=== PATIENT | female | born 1990 | race African-American/Black ===

== ENCOUNTER 2021-01-07 11:29 | Emergency (ER) | payer OTHER ==
[~2021-01-07] VITALS: Ht 152.4 cm; Wt 77.4 kg
[2021-01-07] MEDS ORDERED: METOCLOPRAMIDE HCL 10 MG/2 ML VIAL. IVP ONE (12:15)
[2021-01-07] MEDS ORDERED: IV NORMAL SALINE 1,000ML 1,000 ML IV ONE (12:15)
[2021-01-07] MEDS ORDERED: ACETAMINOPHEN 500 MG TABLET PO ONE (12:15)
[2021-01-07] MEDS ORDERED: KETOROLAC 30 MG/ML VIAL. IVP ONE (12:15)
[2021-01-07 12:43] LABS: BASO % 0 % (0-3); EOS % 0 % (0-3); HEMOGLOBIN 12.2 g/dL (12.0-15.5); LYMPH % 7 % (24-48); MEAN CORPUSCULAR HEMOGLOBIN 28 pg (25-35); MEAN CORPUSCULAR HGB CONC 34 g/dL (31-37); MEAN CORPUSCULAR VOLUME 83 fL (79-100); MONO # 1.1 x10^3/uL (0.0-1.1); MONO % 7 % (0-9); NEUT # 13.5 x10^3uL (1.8-7.7); NEUT % 86 % (31-73); PLATELET COUNT 266 x10^3/uL (140-400); RED BLOOD COUNT 4.34 x10^6/uL (3.50-5.40); RED CELL DISTRIBUTION WIDTH 13.7 % (11.5-14.5); WHITE BLOOD COUNT 15.6 x10^3/uL (4.0-11.0)
[2021-01-07 13:01] LABS: ALBUMIN 3.1 g/dL (3.4-5.0); ALBUMIN/GLOBULIN RATIO 0.6 (1.0-1.7); CALCIUM 8.5 mg/dL (8.5-10.1); CREATININE 1.1 mg/dL (0.6-1.0); GFR 69.6; POTASSIUM 3.7 mmol/L (3.5-5.1); TOTAL BILIRUBIN 0.3 mg/dL (0.2-1.0); TOTAL PROTEIN 8.2 g/dL (6.4-8.2)
[2021-01-07 13:06] LABS: BACTERIA,URINE 0 /HPF (0-FEW); CLARITY,URINE CLOUDY; COLOR,URINE ORANGE; SQUAMOUS EPITHELIAL CELL,UR MOD /LPF
--- NOTE | 2021-01-07 13:06 | PHYS DOC ---
Past History Past Medical History: No Pertinent History Past Surgical History: Cholecystectomy Smoking: Non-smoker Alcohol Use: None Drug Use: None Adult General Chief Complaint Chief Complaint: BACK PAIN OR INJURY HPI HPI Patient is a 30-year-old female who presents to the emergency department with a chief complaint of bilateral back pain that started Tuesday afternoon at approximately 2 PM while she was at work. Patient reports a slow onset of pain that became unbearable throughout the evening, patient reports she took her temperature which was 102.8, did not take any medications for her temperature, noticed the next day when she woke up her temperature was normal. Patient reports being unable to work related to her pain and seeing her primary care provider at the [facility], was diagnosed with a urinary tract infection and dehydration. Patient reports they only took a urine sample, gave her an intramuscular injection of Rocephin, prescribed her Macrobid and Pyridium which she took prior to her arrival to the ER here today. Patient feels she was misdiagnosed and would like a second opinion. Patient reports mild nausea without vomiting or diarrhea, reports intermittent constipation and has not had a bowel movement for 3 days now. Patient reports her pain a 9 out of 10. Patient describes urinary tract infection symptoms as bladder pressure that is constant but becomes worse when she urinates. Denies seeing any blood in her stool or in her urine. Patient denies any vaginal discharge, vaginal itching, rashes in her perennial area, denies STI concerns. Patient reports her last menstrual cycle was approximately 1-1/2 months ago with normal duration of flow, reports having irregular periods since having her Mirena removed 10 years ago and is currently on a control pill only. Patient denies taking any other prescription medications. Patient reports a past surgical history of a cholecystectomy years ago. Patient reports an allergy to Zofran. Reports she had her Covid vaccination completed in September 2020. Patient denies chest pains or shortness of breath, does state it feels like her heart is beating faster than normal. Denies headaches, rashes of her skin, does report generalized body aches, denies any injury to her back. Denies neck pain, sore throat, nasal or chest congestion. Patient denies any other physical complaints or physical concerns. Review of Systems Review of Systems 14 body systems of review of systems have been reviewed. See HPI for pertinent positives and negative responses, otherwise all other systems are negative, nonpertinent or noncontributory. Current Medications Current Medications Current Medications Medications (Trade) Dose Ordered Sig/Abigail Start Time Stop Time Status Last Admin Dose Admin Acetaminophen (Tylenol) 1,000 mg 1X ONCE 01/07/21 12:15 01/07/21 12:19 DC 01/07/21 12:35 1,000 MG Ketorolac Tromethamine (Toradol 30mg Vial) 30 mg 1X ONCE 01/07/21 12:15 01/07/21 12:19 DC 01/07/21 12:34 30 MG Metoclopramide HCl (Reglan Vial) 10 mg 1X ONCE 01/07/21 12:15 01/07/21 12:19 DC 01/07/21 12:32 10 MG Sodium Chloride 1,000 ml @ 1,000 mls/hr 1X ONCE 01/07/21 12:15 01/07/21 13:14 01/07/21 12:31 1,000 MLS/HR Allergies Allergies Allergies Coded Allergies Type Severity Reaction Last Updated Verified ondansetron HCl Allergy Unknown 08/29/15 Yes Physical Exam Physical Exam Constitutional: Well developed, well nourished, no acute distress, non-toxic appearance. 30-year-old female in no apparent distress. HENT: Normocephalic, atraumatic. Eyes: Conjunctive are normal no discharge. Neck: Normal range of motion, no tenderness, supple, no stridor. No meningismus signs, no nuchal rigidity appreciated. Cardiovascular:Heart rate regular rhythm, no murmur, heart rate 111 during physical examination. Lungs & Thorax: Bilateral breath sounds clear to auscultation no adventitious lung sounds appreciated. Abdomen: Bowel sounds normal, soft, no masses, no pulsatile masses. Tenderness to over mid abdomen near umbilicus to low central abdomen with radiation to left lower quadrant. No McBurney's point tenderness, no rebound tenderness, negative psoas sign, negative Avalos sign. No bruising of the abdomen appreciated, old well-healed abdominal surgery site, no skin discoloration of the abdomen appreciated. Skin: Warm, dry, no erythema, no rash. Back: No midline spinal tenderness, CVA tenderness on the left and right, bilateral lumbar tenderness to palpation without radiation. Extremities: No tenderness, no cyanosis, no clubbing, ROM intact, no edema. Neurologic: Alert and oriented X 3, normal motor function, normal sensory function, no focal deficits noted. Psychologic: Affect normal, judgement normal, mood normal. Current Patient Data Vital Signs Vital Signs Date Time Temp Pulse Resp B/P (MAP) Pulse Ox O2 Delivery O2 Flow Rate FiO2 01/07/21 11:35 100.2 111 20 123/76 (92) 98 Room Air EKG EKG [] Radiology/Procedures Radiology/Procedures PATIENT: FLORI TSAI ACCOUNT: [id number] : 1990 LOCATION: ER AGE: 30 SEX: F EXAM STATUS: REG ER ORD. PHYSICIAN: JOE CARLSON APRN REASON: low abdomen pain, bilateral cva tenderness, fever -75mls omni 300 PROCEDURE: CT ABD PELV W/ IV CONTRST ONLY EXAM: CT Abdomen and Pelvis with IV contrast CLINICAL HISTORY: Low abdominal pain, bilateral CVA tenderness COMPARISON: None TECHNIQUE: Helical CT of the abdomen and pelvis was performed following the administration of intravenous contrast. Axial, coronal and sagittal reformatted images were generated. PQRS compliance statement - One or more of the following individualized dose reduction techniques were utilized for this study: 1. Automated exposure control 2. Adjustment of the mA and/or kV according to patient size 3. Use of iterative reconstruction technique FINDINGS: Lower Chest: Lung bases are clear. Abdomen and Pelvis: No focal liver lesion. Borderline hepatic hypoattenuation. Liver is enlarged measuring 21.5 cm in length. Cholecystectomy clips are seen. No biliary ductal dilatation. Pancreas is unremarkable. Spleen is normal in appearance. Adrenal glands are unremarkable. Symmetric nephrograms although the right is heterogeneous. No focal renal lesion. There is enhancement of the ureters, greater on the left. Bladder wall thickening. Moderate to large amount of colonic stool content. No small or large bowel dilatation. No bowel obstruction. Appendix is normal. No abdominal or pelvic ascites. Infiltration about the right gluteal region and right flank. Prominent right lower quadrant retroaortic lymph nodes are seen. Bones: No aggressive osseous lesion is seen. No small or large bowel dilatation. IMPRESSION: 1. There is edema and enhancement about the ureters, greater on the left, consistent with ureteritis and suspicious for ascending infectious process. This can be correlated with urinalysis. 2. Heterogeneous right nephrogram there is seen with pyelonephritis. 3. Hepatomegaly. Borderline hepatic hypoattenuation likely fatty liver. Electronically signed by: Nacho Smith MD (01/07/2021 1:54 PM) [id number] DICTATED AND SIGNED BY: NACHO SMITH MD DATE: 01/07/21 1342 CC: JOE CARLSON APRN; ANAIS TAPIA MD ~MTH0 0 Heart Score C/O Chest Pain: No Risk Factors: Risk Factors: DM, Current or recent (<one month) smoker, HTN, HLP, family history of CAD, obesity. Risk Scores: Risk Factors: DM, Current or recent (<one month) smoker, HTN, HLP, family history of CAD, obesity. Course & Med Decision Making Course & Med Decision Making Pertinent Labs and Imaging studies reviewed. (See chart for details) 30-year-old female, vital signs reviewed, presents emergency department concerning low back pain and bladder pressure since last Tuesday. Patient was seen at [facility] today and diagnosed with a UTI, patient presents today for a second opinion. Patient's physical examination concerning for urinary tract infection versus pyelonephritis versus surgical abdomen. Will order CBC, CMP, blood cultures x2 related to fever, lactic acid, 1 L normal saline, 10 mg IV Reglan, 30 mg IV Toradol, CT abdomen pelvis with IV contrast. Urinalysis assay, urine test, will send urine for GC chlamydia. CT abdomen pelvis interpreted by house radiologist concerning for pyelonephritis, also concerning for a fatty liver, will change patient's prescribed antibiotics from nitrofurantoin to Bactrim DS twice daily x7 days. Upon reexamination of the patient, the patient states she feels much better and is ready to go home, patient states that she she is now pain-free rating her pain at a 0 out of 10. Discussed findings of CT with patient, change in antibiotics, stopping her nitrofurantoin, continuing Pyridium, strict follow-up with PCP this week for reevaluation of kidney infection, further evaluation of abnormal abdominal CT finding, work excuse for tomorrow. Patient gave verbal understanding of discharge home instructions, change in antibiotics, strict follow-up with PCP, return to ER precautions and concerns, patient remains nontoxic at discharge time, patient was discharged home without incident. Dragon Disclaimer Dragon Disclaimer This electronic medical record was generated, in whole or in part, using a voice recognition dictation system. Departure Departure: Impression: Primary Impression: Pyelonephritis Additional Impression: Abnormal abdominal CT scan Disposition: HOME / SELF CARE / HOMELESS Condition: GOOD Referrals: ANAIS TAPIA MD (PCP) Patient Instructions: Pyelonephritis, Adult Additional Instructions: You were seen today in the emergency department for back pain and bladder pain. The urine test done today indicated you have a bladder infection, the CT imaging of your abdomen pelvis revealed a pyelonephritis/kidney infection on the right side. There was an incidental finding of an enlarged liver on the CT scan, please follow-up with your primary care physician Dr. Tapia for examination and testing related to this finding. Please let him know there is a CT image available for him to review at [facility]. As we discussed, please stop taking the nitrofurantoin medication that you were given by the [facility]. I am changing your antibiotic to Bactrim DS which you will take twice a day for 14 days. You may continue taking the Pyridium for bladder pressure discomfort. Please use Tylenol and or Motrin for ongoing pain and discomfort. I have given you a work excuse for tomorrow, if you feel better you may go to work. Please return to the emergency department for worsening symptoms or other concerns. EMERGENCY DEPARTMENT GENERAL DISCHARGE INSTRUCTIONS Thank you for coming to [facility] (ED) today and trusting us with you care. We trust that you had a positivie experience in our Emergency Department. If you wish to speak to the department management, you may call the director at [phone]. YOUR FOLLOW UP INSTRUCTIONS ARE FOLLOWS: 1. Do you have a private Doctor? If you do not have a private doctor, please ask for a resource list of physicians or clinics that may be able to assist you with follow up care. 2. The Emergency Physician has interpreted your x-rays. The X-Ray specialist will also review them. If there is a change in the findings, you will be notified in 48 hours when at all possible. 3. A lab test or culture has been done, your results will be reviewed and you will be notified if you need a change in treatment. ADDITIONAL INSTRUCTIONS AND INFORMATION: 1. Your care today has been supervised by a physician who is specially trained in emergency care. Many problems require more than one evaluation for a complete diagnosis and treatment. We recommend that you schedule your follow up appointment as recommended to ensure complete treatment of you illness or injury. If you are unable to obtain follow up care and continue to have a problem, or if your condition worsens, we recommend that you return to the ED. 2. We are not able to safely determine your condition over the phone nor are we able to give sound medical advice over the phone. For these safety reasons, if you call for medical advice we will ask you to come to the ED for further evaluation. 3. If you have any questions regarding these discharge instructions please call the ED at [phone]. SAFETY INFORMATION: In the interest of safety, wellness, and injury prevention; we encourage you to wear your sealbelt, if you smoke; quite smoking, and we encourage family to use a protective helmet for bicycling and other sporting events that present an increased risk for head injury. IF YOUR SYMPTOMS WORSEN OR NEW SYMPTOMS DEVELOP, OR YOU HAVE CONCERNS ABOUT YOUR CONDITION; OR IF YOUR CONDITION WORSENS WHILE YOU ARE WAITING FOR YOUR FOLLOW UP APPOI NTMENT; EITHER CONTACT YOUR PRIMARY CARE DOCTOR, THE PHYSICIAN WHOSE NAME AND NUMBER YOU WERE GIVEN, OR RETURN TO THE ED IMMEDIATELY. Scripts Ibuprofen (IBUPROFEN) 600 Mg Tablet 600 MG PO Q6-8HRS PRN for PAIN, #20 TAB 0 Refills Prov: JOE CARLSON APRN 01/07/21 Sulfamethoxazole/Trimethoprim (BACTRIM DS TABLET) 1 Each Tablet 1 TAB PO BID for kidney infection for 14 Days, #28 TAB 0 Refills Prov: JOE CARLSON APRN 01/07/21 Problem Qualifiers JOE CARLSON APRN Jan 07, 2021 13:06
[2021-01-07 13:10] LABS: U PREG PATIENT NEGATIVE (NEG)
[2021-01-07] MEDS ORDERED: IOHEXOL 300 MG/ML 75 ML VIAL. IV ONE (13:15)
--- NOTE | 2021-01-07 13:56 | RAD ---
EXAM: CT Abdomen and Pelvis with IV contrast CLINICAL HISTORY: Low abdominal pain, bilateral CVA tenderness COMPARISON: None TECHNIQUE: Helical CT of the abdomen and pelvis was performed following the administration of intrave nous contrast. Axial, coronal and sagittal reformatted images were generated. PQRS compliance statement - One or more of the following individualized dose reduction techniques wer e utilized for this study: 1. Automated exposure control 2. Adjustment of the mA and/or kV according to patient size 3. Use of iterative reconstruction technique FINDINGS: Lower Chest: Lung bases are clear. Abdomen and Pelvis: No focal liver lesion. Borderline hepatic hypoattenuation. Liver is enlarged measuring 21.5 [facility]. Cholecystectomy clips are seen. No biliary ductal dilatation. Pancreas is unremarkable. Spleen i s normal in appearance. Adrenal glands are unremarkable. Symmetric nephrograms although the right is heterogeneous. No focal renal lesion. There is enhancemen t of the ureters, greater on the left. Bladder wall thickening. Moderate to large amount of colonic s tool content. No small or large bowel dilatation. No bowel obstruction. Appendix is normal. No abdominal or pelvic ascites. Infiltration about the right gluteal region and right flank. Prominen t right lower quadrant retroaortic lymph nodes are seen. Bones: No aggressive osseous lesion is seen. No small or large bowel dilatation. IMPRESSION: 1. There is edema and enhancement about the ureters, greater on the left, consistent with ureteritis and suspicious for ascending infectious process. This can be correlated with urinalysis. 2. Heterogeneous right nephrogram there is seen with pyelonephritis. 3. Hepatomegaly. Borderline hepatic hypoattenuation likely fatty liver. Electronically signed by: Nacho Pearson MD (01/07/2021 1:54 PM) [id number]
[2021-01-07] MEDS ORDERED: SULF1TAB24 PO (14:39)
[2021-01-07] MEDS ORDERED: IBUP600T16 PO (14:39)
[2021-01-07 14:40] VITALS: BP 112/60
[2021-01-07 15:13] LABS: % BANDS 29 % (0-9); % LYMPHS 9 % (24-48); % METAS 2 % (0-0); % MONOS 5 % (0-10); % MYELOS 3 % (0-0); % SEGS 52 % (35-66); PLT ESTIMATE ADEQUATE (ADEQUATE)
== END 2021-01-07 14:45 | disposition home or self-care (01) ==
LOC: ER 11:29
DX: N12 Tubulo-interstitial nephritis, not specified as acute or chronic (principal); R93.5 Abnormal findings on diagnostic imaging of other abdominal regions, including retroperitoneum; K59.00 Constipation, unspecified; Z90.49 Acquired absence of other specified parts of digestive tract; Z88.8 Allergy status to other drugs, medicaments and biological substances
CPT/HCPCS: 36415; 74177; 80053; 81001; 81025; 83605; 83690; 85007; 85025; 87040; 87086; 87491; 87591; 96361; 96374; 96375; J1885; J2765; Q9967; 99285-25; J7030